=== PATIENT | male | born 1990 | race Caucasian/White ===

== ENCOUNTER 2018-09-02 02:17 | Emergency (ER) | payer MEDICAID ==
[~2018-09-02] VITALS: Ht 167.6 cm; Wt 100.7 kg
[~2018-09-02 02:17] MED LIST: CLON0.5T PO; DIVA250T4 PO
[2018-09-02 02:20] VITALS: BP 133/80
--- NOTE | 2018-09-02 02:47 | NUR ---
CARE ASSUMED. PT RESTING COMFORTABLY. WARM BLANKET GIVEN. CRACKERS AND WATER GIVEN. ROOM AND BELONGINGS SECURED. RECORDS FROM [facility] TO BE REQUESTED.
--- NOTE | 2018-09-02 03:01 | NUR ---
ERP AT BEDSIDE TO EVAL.
--- NOTE | 2018-09-02 03:13 | NUR ---
RN ATTEMPTED TO CALL BROTHER, TANA, AT [phone]. NO ANSWER AT THIS TIME.
--- NOTE | 2018-09-02 03:33 | NUR ---
ERP aware of no contact made with brother. PT to be held in ER until AM for social work instructor assist with getting transferred to [facility]. Sitter in place for obs. Juice and crackers given. Pt aware of POC. No further needs expressed.
--- NOTE | 2018-09-02 04:18 | NUR ---
PT SLEEPING WITH RESP EVEN AND UNLABORED. SITTER IN PLACE.
--- NOTE | 2018-09-02 05:13 | NUR ---
PT SLEEPING. SITTER IN PLACE. REPORT TO DESIREE REED.
--- NOTE | 2018-09-02 06:00 | NUR ---
PT SLEEPING, AWAITING SW FOR RESOURCES, MEAL TRAY ORDERED SITTER AT DOOR FOR SAFETY
--- NOTE | 2018-09-02 07:04 | NUR ---
I AM ASSUMING CARE OF THIS PT FROM DESIREE (BRIANNA) AT THIS TIME. SBAR REPORT WAS EXCHANGED AT THE BEDSIDE.
--- NOTE | 2018-09-02 07:34 | NUR ---
[facility]AVON PROVIDED AND APPRECIATED.
--- NOTE | 2018-09-02 07:48 | NUR ---
AWAITING CONSULT FROM
--- NOTE | 2018-09-02 08:52 | NUR ---
I SPOKE WITH GAGE FAJARDO'S BROTHER. 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 IN AN HOUR TO AN HOUR AND A HALF.
--- NOTE | 2018-09-02 09:24 | NUR ---
NO FAMILY IS AVAILABLE TO CLINICAL INFORMATICS STRATEGIST THIS PATIENT. THE PATIENT IS STATING THAT HE WISHES TO ATTEND AN A.A. MEETING NEARBY, THEN LOAD A BUS TO [place]. I WILL NOTIFAMINAH STACK, AND TIE LAYER AND ANTICIPATE D/C SOON.
== END 2018-09-02 10:58 | disposition home or self-care (01) ==
LOC: ED 02:22
DX: F31.9 Bipolar disorder, unspecified (principal); F17.210 Nicotine dependence, cigarettes, uncomplicated; F20.9 Schizophrenia, unspecified
CPT/HCPCS: 99284